=== PATIENT | male | born 2000 | race Caucasian/White ===

== ENCOUNTER 2024-01-30 09:46 | Emergency (ER) | payer OTHER, SELFPAY ==
--- NOTE | ~2024-01-30 | XR_ITS ---
EXAMINATION: XR chest 2V DATE: 01/30/2024 12:05 INDICATION: Right lower rib pain. Cough. TECHNIQUE: Frontal and lateral views of the chest were obtained. COMPARISON: None. FINDINGS: There is no pneumonia, pleural effusion, or pneumothorax. The heart size is normal. IMPRESSION: 1. No acute cardiopulmonary disease. Reviewed, dictated and finalized at location A. [employer]
[2024-01-30 09:49] VITALS: BP 151/84; PULSE 79; RESP 18; TEMP 37.1; O2SAT 100
[2024-01-30 10:31] VITALS: BP 137/95; O2SAT 99
[2024-01-30 10:58] VITALS: BP 126/85; PULSE 79; RESP 19; O2SAT 99
[2024-01-30 11:01] VITALS: BP 137/96; O2SAT 99
--- NOTE | 2024-01-30 11:03 | ECG_ITS ---
Test Date: 2024-01-30 11:12:01 Measurements Intervals [place] Rate: 75 P: 48 [place]: 134 QRS: 16 QRSD: 89 T: 25 QT: 350 QTc: 392 Interpretive Statements SINUS RHYTHM NORMAL ECG No previous ECG available for comparison Electronically Signed On 01-30-2024 11:58:46 [employer] by Grabiel Clayton D.O.
--- NOTE | 2024-01-30 11:04 | ED.GENADULT ---
HPI - General Adult General Chief complaint: Unspecified Stated complaint: chest pain Time Seen by Provider: 01/30/24 10:34 History of Present Illness HPI narrative: 23-year-old male with history of depression and autism presents emergency department with mother at bedside for right lower rib pain for approximately 11 days. Patient states he went to urgent care 6 days ago after having symptoms for 5 days. States he was diagnosed with pneumonia, no x-ray was performed. He was prescribed benzonatate, steroids and azithromycin. States he completed the course with improvement in his right rib pain. When he finished the antibiotics yesterday, his pain came back which is why came to the ED. He does report a mild cough and associated shortness of breath. States the pain is located in the right lower ribs, worse with sitting and better with standing, worse with inspiration. Denies hemoptysis, fever, abdominal pain, lower extremity edema, recent surgeries or hospitalizations, history of VTE. States he has been taking ibuprofen with some improvement. Related Data Allergies Allergy/AdvReac Type Severity Reaction Status Date / Time loperamide [From Imodium A-D] Allergy Unknown Hives Verified 12/12/21 11:54 Review of Systems Review of Systems: All systems reviewed & are unremarkable except as noted in HPI and below PMFSH Past Medical History Medical History History of shoulder dystocia Rotator cuff impingement syndrome of left shoulder Scapular dyskinesis Family History Family History Other Arthritis Depression Hypertension Social History Social History Smoking status: Never smoker Alcohol intake: unknown Substance use type: does not use Occupation/Education: student Gender identity (if verbalized by the patient): Male Exam Narrative: GENERAL: Well-appearing, well-nourished, and in no acute distress. HEAD: Normocephalic, atraumatic. EYES: EOMI. ENT: Nares clear, no rhinorrhea or epistaxis. Mucous membranes moist. NECK: Supple. CHEST: Clear to auscultation. No respiratory distress. Tenderness to the right anterior lateral ribs on palpation with no crepitus, step-offs or deformities overlying skin changes. HEART: Regular rate and rhythm. No murmur heard. Normal peripheral pulses. ABDOMEN: Soft, nontender, nondistended, normal active bowel sounds. EXTREMITIES: Normal range of motion. No edema. Negative Homans bilaterally SKIN: Warm, dry, no rash. NEURO: No focal deficits. Alert and oriented x3 Course Vital Signs Vital signs: Vital Signs Temperature 98.8 F 01/30/24 09:49 Pulse Rate 79 01/30/24 09:49 Respiratory Rate 18 01/30/24 09:49 Blood Pressure 151/84 H 01/30/24 09:49 Pulse Oximetry 100 01/30/24 09:49 Oxygen Delivery Room Air 01/30/24 09:49 Temperature 98.8 F 01/30/24 09:49 Pulse Rate 79 01/30/24 10:58 Respiratory Rate 18 01/30/24 11:50 Blood Pressure 126/85 01/30/24 10:58 Pulse Oximetry 99 01/30/24 10:58 Oxygen Delivery Room Air 01/30/24 09:49 Medical Decision Making [facility] Narrative Medical decision making narrative: 23-year-old male presents to the emergency department for right inferior rib pain for 11 days. Finished a course of azithromycin for reported pneumonia diagnosed by urgent care 6 days ago with improvement, however symptoms came back after course of azithromycin was completed. Triage vitals with high blood pressure which has since resolved. He is afebrile nontoxic appearing. He is satting 99% on room air in no respiratory distress. Lung sounds are clear. He does have tenderness to the right anterior lateral ribs on palpation with no overlying skin changes. EKG shows sinus rhythm with a rate of 75 ppm, normal MI interval, normal QRS duration, normal QTC, no ischemic changes. Troponin is undetectable. D-dimer is within normal limits, wells score is low risk. CBC and chemistries are unremarkable. Lipase is normal. COVID, flu RSV are negative. Chest x-ray shows no acute cardiopulmonary findings. Patient and mother updated workup. Symptoms are consistent with MSK etiology, also likely concurrent pleurisy given recent pneumonia cough. Will treat with NSAIDs and have a follow-up closely with his PCP. Strict ED return precautions discussed. He is mother agreeable to plan verbalized understanding. Discharged in stable condition. Vital Signs Vital Signs: Vital Signs Temperature 98.8 F 01/30/24 09:49 Pulse Rate 79 01/30/24 09:49 Respiratory Rate 18 01/30/24 09:49 Blood Pressure 151/84 H 01/30/24 09:49 Pulse Oximetry 100 01/30/24 09:49 Oxygen Delivery Room Air 01/30/24 09:49 Temperature 98.8 F 01/30/24 09:49 Pulse Rate 79 01/30/24 10:58 Respiratory Rate 18 01/30/24 11:50 Blood Pressure 126/85 01/30/24 10:58 Pulse Oximetry 99 01/30/24 10:58 Oxygen Delivery Room Air 01/30/24 09:49 Lab Data 01/30/24 11:31 01/30/24 11:31 Labs: Lab Results 01/30/24 01/30/24 Range/Units 11:31 11:32 WBC 8.3 (4.5-10.0) K/mm3 RBC 5.26 (4.6-6.20) M/mm3 Hgb 15.5 (14.0-18.0) g/dL Hct 46.1 (42.0-52.0) % MCV 87.6 (80-100) fl MCH 29.5 (26-34) pg MCHC 33.6 (32-36) g/dl RDW 12.4 (11.5-14.5) % Plt Count 350 (150-375) k/mm3 MPV 9.7 (7.4-10.4) fl Immature Gran % (Auto) 0.2 (0-0.5) % Neut % (Auto) 41.8 L (45.5-73.1) % Lymph % (Auto) 48.2 H (18.3-44.2) % [place] % (Auto) 7.5 (2.6-8.5) % Eos % (Auto) 1.5 (0-4.4) % Baso % (Auto) 0.8 (0.2-1.2) % Lymph # (Auto) 3.98 H (0.9-3.2) K/mm3 [place] # (Auto) 0.6 (0.1-0.6) K/mm3 Eos # (Auto) 0.1 (0-0.3) K/mm3 Baso # (Auto) 0.1 (0.0-0.1) K/mm3 Abs Immat Gran (auto) 0.02 (0.00-0.031) K/mm3 Absolute Neuts (auto) 3.5 (1.3-6.7) K/mm3 Absolute Nucleated RBC 0.000 (0.0-0.012) K/mm3 Nucleated RBC % 0.0 (0.0-0.2) % D-Dimer < 0.27 (<0.48) ug/mL Sodium 138 (137-145) mmol/L Potassium 4.0 (3.4-5.0) mmol/L Chloride 102 (98-107) mmol/L Carbon Dioxide 30 (22-30) mmol/L Anion Gap 6 (4-12) mmol/L BUN 16 (9-20) mg/dL Creatinine 0.90 (0.7-1.3) mg/dL Estim Creat Clear Calc 106 ml/min Estimated GFR > 60 (59 - ) Glucose 96 (65-110) mg/dL Calcium 9.1 (8.4-10.2) mg/dL Total Bilirubin 1.1 (0.2-1.3) mg/dL AST 20 (17-59) U/L ALT 14 (6-50) U/L Alkaline Phosphatase 41 (38-126) U/L Troponin I < 0.012 (0.000-0.034) ng/mL NT-Pro-B Natriuret Pep 127 H (19.9-100) pg/mL Total Protein 8.0 (6.3-8.2) g/dL Albumin 4.4 (3.5-5.1) g/dL Lipase 50 (23-300) U/L Influenza A (RT-PCR) Negative (Negative) Influenza B (RT-PCR) Negative (Negative) RSV (RT-PCR) Negative (Negative) SARS-CoV-2 RNA (RT-PCR) Negative (Negative) Discharge Plan Discharge Clinical Impression: Pleurisy Patient Disposition: Home, Self-Care Condition: Stable Instructions: Antibiotic Form, Pleurisy (DC) Additional Instructions: You were evaluated in the emergency department for rib pain. Your workup here is reassuring. Your symptoms are consistent with pleurisy as discussed. Please take the anti-inflammatories as directed follow-up with your primary care provider. Return to the emergency department if you develop changing worsening pain, shortness breath, fever, or other concerning symptoms. Prescriptions: New ibuprofen 800 mg tablet 800 mg PO TID PRN (Reason: pain) Qty: 20 0RF Follow-up/Referrals: UNKNOWN,DOCTOR [Primary Care Provider] -
[2024-01-30] MEDS: KETOROLAC 15 MG/ML VIAL (*BKC) IV PUSH (11:28)
[2024-01-30 11:38] LABS: Basophils Absolute Auto 0.1 K/mm3 (0.0-0.1); Basophils Percent Auto 0.8 % (0.2-1.2); Eosinophils Absolute Auto 0.1 K/mm3 (0-0.3); Eosinophils Percent Auto 1.5 % (0-4.4); Hematocrit 46.1 % (42.0-52.0); Hemoglobin 15.5 g/dL (14.0-18.0); Immature Granulocyte Absolute 0.02 K/mm3 (0.00-0.031); Immature Granulocyte Percent A 0.2 % (0-0.5); Lymphocytes Absolute Auto 3.98 K/mm3 (0.9-3.2); Lymphocytes Percent Auto 48.2 % (18.3-44.2); Mean Corpuscular HGB Conc 33.6 g/dl (32-36); Mean Corpuscular Hemoglobin 29.5 pg (26-34); Mean Corpuscular Volume 87.6 fl (80-100); Mean Platelet Volume 9.7 fl (7.4-10.4); Monocytes Absolute Auto 0.6 K/mm3 (0.1-0.6); Monocytes Percent Auto 7.5 % (2.6-8.5); Neutrophils Absolute Auto 3.5 K/mm3 (1.3-6.7); Neutrophils Percent Auto 41.8 % (45.5-73.1); Platelet Count Result 350 k/mm3 (150-375); Red Blood Count 5.26 M/mm3 (4.6-6.20); Red Cell Distribution Width 12.4 % (11.5-14.5); White Blood Count 8.3 K/mm3 (4.5-10.0)
[2024-01-30 11:50] VITALS: RESP 18
[2024-01-30 11:51] LABS: Alanine Aminotransferase 14 U/L (6-50); Albumin Level 4.4 g/dL (3.5-5.1); Alkaline Phosphatase 41 U/L (38-126); Anion Gap 6 mmol/L (4-12); Aspartate Amino Transferase 20 U/L (17-59); Bilirubin,Total 1.1 mg/dL (0.2-1.3); Blood Urea Nitrogen 16 mg/dL (9-20); Calcium 9.1 mg/dL (8.4-10.2); Carbon Dioxide 30 mmol/L (22-30); Chloride 102 mmol/L (98-107); Estimated CRCL calculation 106 ml/min; Estimated Glomerular Filt Rate > 60; Glucose 96 mg/dL (65-110); Lipase 50 U/L (23-300); Sodium 138 mmol/L (137-145)
[2024-01-30 11:55] LABS: D Dimer < 0.27 ug/mL (<0.48)
[2024-01-30 12:03] LABS: NT Pro B Type Natriuretic Pept 127 pg/mL (19.9-100); Troponin I < 0.012 ng/mL (0.000-0.034)
[2024-01-30 12:19] LABS: Influenza A QL RT-PCR Negative (Negative); Influenza B QL RT-PCR Negative (Negative); RSV RNA, RT-PCR Negative (Negative); SARS-CoV-2 RNA PCR Negative (Negative)
[2024-01-30 12:30] VITALS: BP 128/87; PULSE 71; RESP 16; O2SAT 98
== END 2024-01-30 12:59 | disposition home or self-care (01) ==
PROVIDERS: Emergency Provider Physician Assistant
DX: R09.1 Pleurisy (principal); Z20.822 Contact with and (suspected) exposure to COVID-19
CPT/HCPCS: 36415; 71046; 80053; 83690; 83880; 84484; 85025; 85380; 87637; 93005; 99284; J1885